=== PATIENT | female | born 1995 ===

== ENCOUNTER 2025-04-03 05:41 | Day surgery (SDC) | payer OTHER ==
[2025-03-29 11:57] VITALS: BP 140/88
[~2025-04-03] VITALS: Ht 175.3 cm; Wt 113.4 kg
[~2025-04-03 05:41] MED LIST: IRON236 MG PO; PROVERA2.5 MG PO
[2025-04-03] MEDS ORDERED: POVIDONE-IODINE 118 ML BOTT TOP ONE (17:00)
[2025-04-03] MEDS ORDERED: PROMETHAZINE HCL 50 MG/ML AMPUL IM ONE (18:15)
== END 2025-04-03 22:05 | disposition home or self-care (01) ==
LOC: CIR.AMB 05:41 → U 05:41 → CIR.AMB 07:00
PROVIDERS: ATTEND Obstetrics & Gynecology Obstetrics
DX: N93.8 Other specified abnormal uterine and vaginal bleeding (principal); N72 Inflammatory disease of cervix uteri; N84.0 Polyp of corpus uteri; Z88.5 Allergy status to narcotic agent